=== PATIENT | female | born 1940 | race Two or more races ===

== ENCOUNTER 2023-10-19 16:04 | Inpatient (IN) | payer OTHER ==
[~2023-10-19] VITALS: Ht 157.5 cm; Wt 66.9 kg
[2023-10-19] MEDS: NITROGLYCERIN 0.4 MG SL TAB SL ONE (17:30)
[2023-10-19] MEDS: ASPirin 325 MG TAB PO ONE (17:30)
[2023-10-19 17:35] LABS: Alanine Aminotransferase 19 U/L (7-40); Albumin 4.4 g/dL (3.2-4.8); Alkaline Phosphatase 80 U/L (46-116); Anion Gap 12 (5-15); Aspartate Aminotransferase 27 U/L (13-40); BUN/Creatinine Ratio 12.6 (10.0-20.0); Bilirubin, Total 0.5 mg/dL (0.2-1.0); Blood Urea Nitrogen 18 mg/dL (9-23); Calcium 9.7 mg/dL (8.5-10.1); Carbon Dioxide 20 mmol/L (20-30); Chloride 109 mmol/L (98-107); Glucose 144 mg/dL (74-106); Potassium 4.3 mmol/L (3.5-5.1); Sodium 141 mmol/L (136-145)
[2023-10-19 18:25] LABS: Basophils # (auto) 0 10 ^3/uL (0-0.2); Basophils % (auto) 0.2 % (0.0-2.0); Eosinophils # (auto) 0 10 ^3/uL (0-0.8); Hematocrit 25.4 % (36.0-46.0); Hemoglobin 8.5 g/dL (12.2-16.2); Lymphocytes # (auto) 0.8 10 ^3/uL (0.4-5.4); Lymphocytes % (auto) 13.7 % (10.0-50.0); Mean Corpuscular Hemoglobin 29.1 pg (28.0-32.0); Mean Corpuscular Hgb Conc. 33.6 g/dL (32.0-36.0); Mean Corpuscular Volume 86.9 fL (80.0-100.0); Monocytes # (auto) 0.3 10 ^3/uL (0-1.3); Neutrophils # (auto) 4.7 10 ^3/uL (1.6-8.6); Neutrophils % (auto) 80.1 % (37.0-80.0); Red Blood Cells 2.92 10^6/uL (4.0-5.20); White Blood Cell 5.8 10^3/uL (4.4-10.8)
[2023-10-19 18:34] LABS: Urine Bacteria FEW /hpf (None Seen); Urine Blood TRACE /uL (Negative); Urine Clarity Clear (Clear); Urine Color Light-Yellow (Yellow); Urine Mucus FEW (None Seen); Urine Protein, UAD Negative (Negative); Urine Specific Gravity 1.014 (1.001-1.035); Urine Urobilinogen Normal (Negative); Urine WBC 11 /hpf (0 - 5); Urine pH 5.5 (5.0-9.0)
[2023-10-19] MEDS ORDERED: NITROGLYCERIN 0.4 MG SL TAB SL PRN (20:30)
[2023-10-19] MEDS ORDERED: ONDANSETRON HCL 4 MG/2 ML VIAL IV PRN (20:30)
[2023-10-19] MEDS ORDERED: MORPHINE SULFATE INJ 2 MG/ml SYRG IV PRN (20:30)
[2023-10-20] VITALS (8 sets, daily range): BP systolic 94–142; BP diastolic 50–74; PULSE 70–84; RESP 16–22; TEMP 98–98.7; O2SAT 94–97
[2023-10-20] MEDS ORDERED: QUET200T45 PO (04:19)
[2023-10-20] MEDS ORDERED: OMEP20TA PO (04:19)
[2023-10-20] MEDS ORDERED: TRAZ-227 PO (04:19)
[2023-10-20] MEDS ORDERED: ALPR0.254 PO (04:19)
[2023-10-20] MEDS ORDERED: DILT60TA PO (04:19)
[2023-10-20] MEDS ORDERED: APIX2.5T PO (04:19)
[2023-10-20] MEDS ORDERED: LISI-285 PO (04:19)
[2023-10-20 06:33] LABS: Basophils # (auto) 0 10 ^3/uL (0-0.2); Eosinophils # (auto) 0 10 ^3/uL (0-0.8); Hemoglobin 8.2 g/dL (12.2-16.2); Monocytes # (auto) 0.4 10 ^3/uL (0-1.3)
[2023-10-20 06:35] LABS: Basophils % (auto) 0.3 % (0.0-2.0); Hematocrit 24.5 % (36.0-46.0); Lymphocytes # (auto) 0.8 10 ^3/uL (0.4-5.4); Lymphocytes % (auto) 15.7 % (10.0-50.0); Mean Corpuscular Hemoglobin 29.4 pg (28.0-32.0); Mean Corpuscular Hgb Conc. 33.5 g/dL (32.0-36.0); Mean Corpuscular Volume 87.8 fL (80.0-100.0); Monocytes % (auto) 7.5 % (0.0-12.0); Neutrophils % (auto) 76.5 % (37.0-80.0); Red Cell Distribution Width 15.2 % (11.8-14.3); White Blood Cell 5.2 10^3/uL (4.4-10.8)
[2023-10-20 06:42] LABS: Chloride 108 mmol/L (98-107); Potassium 3.6 mmol/L (3.5-5.1); Sodium 143 mmol/L (136-145)
[2023-10-20 06:43] LABS: Anion Gap 12 (5-15); Calcium 9.6 mg/dL (8.5-10.1); Carbon Dioxide 23 mmol/L (20-30)
[2023-10-20 06:48] LABS: BUN/Creatinine Ratio 20.5 (10.0-20.0); Blood Urea Nitrogen 23 mg/dL (9-23); Glucose 166 mg/dL (74-106)
[2023-10-20] MEDS ORDERED: ENOXAPARIN SOD 30 MG/0.3 ML SYRINGE SC SCH (10:00)
[2023-10-20] MEDS ORDERED: ASPirin 81 mg TAB PO SCH (10:00)
[2023-10-20] MEDS: cefTRIAXone 1GM/50ML D5W 50 ML IV SCH (10:50)
[2023-10-20] MEDS: APIXABAN 2.5 MG TAB PO SCH (10:50)
[2023-10-20] MEDS: traZODone HCL 50 MG TAB PO SCH (17:28)
[2023-10-20] MEDS: ACETAMINOPHEN 325 MG TAB PO PRN (17:35)
[2023-10-20] MEDS: QUEtiapine FUMARATE 100 MG TAB PO SCH (21:48)
[2023-10-20] MEDS: PANTOPRAZOLE 40 MG TAB PO SCH (21:48)
[2023-10-21] VITALS (7 sets, daily range): BP systolic 94–127; BP diastolic 44–76; PULSE 76–98; RESP 18–19; TEMP 97.7–98.7; O2SAT 94–99
[2023-10-21] MEDS: ALPRAZolam 0.25 MG TAB PO PRN (03:37)
[2023-10-21] MEDS ORDERED: dilTIAZem HCL 60 MG TAB PO SCH (10:00)
[2023-10-22] MEDS: HYDROcodone-ACET 5/325MG TAB PO PRN (05:08)
[2023-10-22 08:00] VITALS: BP 90/58; PULSE 112; PULSE 99; RESP 16; TEMP 98; O2SAT 91
[2023-10-22] MEDS: DOCUSATE SOD 100 MG CAP PO PRN (08:08)
[2023-10-22 09:20] VITALS: BP 90/58; PULSE 99; RESP 16; TEMP 98; O2SAT 91
[2023-10-22 12:24] VITALS: BP 108/63; PULSE 93; RESP 20; TEMP 98.2; O2SAT 93
[2023-10-22 16:49] VITALS: BP 104/58; PULSE 78; RESP 19; TEMP 98.2; O2SAT 93
[2023-10-22 20:00] VITALS: BP 114/78; PULSE 91; PULSE 95; RESP 20; TEMP 99.1; O2SAT 93
[2023-10-22 21:00] VITALS: BP 118/62; PULSE 86; RESP 19; TEMP 98.1; O2SAT 93
[2023-10-23 01:02] VITALS: BP 120/63; PULSE 79; RESP 17; TEMP 97.8; O2SAT 94
[2023-10-23 05:00] VITALS: BP 115/55; PULSE 94; RESP 18; TEMP 98.2; O2SAT 92
[2023-10-23 05:50] LABS: Basophils # (auto) 0 10 ^3/uL (0-0.2); Basophils % (auto) 0.2 % (0.0-2.0); Eosinophils # (auto) 0 10 ^3/uL (0-0.8); Hemoglobin 8.3 g/dL (12.2-16.2); Lymphocytes % (auto) 17.5 % (10.0-50.0); Mean Corpuscular Hemoglobin 28.7 pg (28.0-32.0); Mean Corpuscular Hgb Conc. 33.3 g/dL (32.0-36.0); Mean Corpuscular Volume 86.3 fL (80.0-100.0); Monocytes # (auto) 0.5 10 ^3/uL (0-1.3); Monocytes % (auto) 8.2 % (0.0-12.0); Neutrophils # (auto) 4.4 10 ^3/uL (1.6-8.6); Neutrophils % (auto) 74.1 % (37.0-80.0); Nucleated Red Blood Cells % 0.1 %; White Blood Cell 5.9 10^3/uL (4.4-10.8)
[2023-10-23 06:10] LABS: Alanine Aminotransferase 20 U/L (7-40); Albumin 4.2 g/dL (3.2-4.8); Alkaline Phosphatase 78 U/L (46-116); Anion Gap 13 (5-15); Aspartate Aminotransferase 19 U/L (13-40); BUN/Creatinine Ratio 22.3 (10.0-20.0); Bilirubin, Total 0.7 mg/dL (0.2-1.0); Blood Urea Nitrogen 25 mg/dL (9-23); Carbon Dioxide 21 mmol/L (20-30); Chloride 106 mmol/L (98-107); Glucose 133 mg/dL (74-106); Potassium 3.8 mmol/L (3.5-5.1); Sodium 140 mmol/L (136-145)
[2023-10-23 06:30] LABS: Magnesium 1.6 mg/dL (1.6-2.6)
[2023-10-23 08:00] VITALS: PULSE 88; PULSE 99; RESP 20; O2SAT 96
[2023-10-23 08:46] VITALS: BP 118/70; PULSE 109; RESP 19; TEMP 98.6; O2SAT 93
[2023-10-23] MEDS: ADENOSINE 56 MG in GIVE UN-DILUTED 0 ML IV STA (10:27)
[2023-10-23 12:53] VITALS: BP 113/44; PULSE 93; RESP 19; TEMP 98.7; O2SAT 98
[2023-10-23 17:14] VITALS: BP 123/75; PULSE 80; RESP 19; TEMP 98.4; O2SAT 95
[2023-10-23] MEDS ORDERED: CEFD300C2 PO (17:34)
== END 2023-10-23 18:36 | disposition home health service (06) | DRG 392 ==
LOC: ER 16:04 → TELE 20:40 → TELE-WESTW 10-20 02:12
PROVIDERS: ADMIT Nurse Practitioner Family; ATTEND Nurse Practitioner Family
DX: K21.9 Gastro-esophageal reflux disease without esophagitis (principal); N39.0 Urinary tract infection, site not specified; E78.5 Hyperlipidemia, unspecified; D64.9 Anemia, unspecified; I10 Essential (primary) hypertension; I49.9 Cardiac arrhythmia, unspecified; G20.A1 Parkinson's disease without dyskinesia, without mention of fluctuations; Z86.73 Personal history of transient ischemic attack (TIA), and cerebral infarction without residual deficits; Z90.49 Acquired absence of other specified parts of digestive tract; Z79.01 Long term (current) use of anticoagulants
CPT/HCPCS: 36415; 71045; 78452; 80048; 80053; 81001; 83605; 83735; 83880; 84484; 85025; 87040; 93005; 93017; 93306; 97110; 97116; 97163; 97530; G0378; J0153

== ENCOUNTER 2024-02-24 11:05 | Inpatient (IN) | payer OTHER ==
[~2024-02-24] VITALS: Ht 152.4 cm; Wt 60.0 kg
[~2024-02-24 11:05] MED LIST: ALPR0.254 PO; APIX2.5T PO; CEFD300C2 PO; DILT60TA PO; OMEP20TA PO; QUET200T45 PO; TRAZ-227 PO
[2024-02-24 11:38] VITALS: PULSE 90; RESP 50; O2SAT 95
[2024-02-24 12:44] LABS: Basophils # (auto) 0 10 ^3/uL (0-0.2); Basophils % (auto) 0.2 % (0.0-2.0); Eosinophils # (auto) 0 10 ^3/uL (0-0.8); Hemoglobin 8.7 g/dL (12.2-16.2); Lymphocytes # (auto) 0.5 10 ^3/uL (0.4-5.4); Mean Corpuscular Hemoglobin 31.7 pg (28.0-32.0); Mean Corpuscular Hgb Conc. 33.2 g/dL (32.0-36.0); Mean Corpuscular Volume 95.5 fL (80.0-100.0); Monocytes # (auto) 0.6 10 ^3/uL (0-1.3); Monocytes % (auto) 7.6 % (0.0-12.0); Neutrophils # (auto) 6.6 10 ^3/uL (1.6-8.6); Neutrophils % (auto) 85.2 % (37.0-80.0); Nucleated Red Blood Cells % 0.1 %; Platelet Count (auto) 177 10^3/uL (140-450); Red Blood Cells 2.73 10^6/uL (4.0-5.20); Red Cell Distribution Width 21.6 % (11.8-14.3); White Blood Cell 7.8 10^3/uL (4.4-10.8)
[2024-02-24 12:55] LABS: Alanine Aminotransferase 21 U/L (7-40); Alkaline Phosphatase 185 U/L (46-116); Anion Gap 8 (5-15); BUN/Creatinine Ratio 18.5 (10.0-20.0); Blood Urea Nitrogen 20 mg/dL (9-23); Calcium 9.8 mg/dL (8.7-10.4); Carbon Dioxide 25 mmol/L (20-30); Chloride 108 mmol/L (98-107); Glucose 132 mg/dL (74-106); Potassium 4.1 mmol/L (3.5-5.1); Sodium 141 mmol/L (136-145)
[2024-02-24 12:56] LABS: Albumin 3.4 g/dL (3.2-4.8); Aspartate Aminotransferase 51 U/L (13-40); Total Protein 6.8 g/dL (5.7-8.2)
[2024-02-24 15:16] LABS: Urine Bacteria FEW /hpf (None Seen); Urine Blood Negative /uL (Negative); Urine Color Yellow (Yellow); Urine Protein, UAD 1+ (Negative); Urine Specific Gravity 1.022 (1.001-1.035); Urine Urobilinogen 8 mg/dL (Negative); Urine WBC 3 /hpf (0 - 5)
[2024-02-24 15:17] LABS: Urine Clarity Clear (Clear)
[2024-02-24] MEDS: IOHEXOL 300 MG/ML 100ML BOTTLE IJ ONE (15:30)
[2024-02-24] MEDS ORDERED: ALPRAZolam 0.25 MG TAB PO PRN (16:30)
[2024-02-24] MEDS ORDERED: NITROGLYCERIN 0.4 MG SL TAB SL PRN (16:30)
[2024-02-24] MEDS ORDERED: MORPHINE SULFATE INJ 2 MG/ml SYRG IV PRN (16:30)
[2024-02-24] MEDS: MORPHINE SULFATE INJ 2 MG/ml SYRG IV PRN ×2 (16:51→21:42)
[2024-02-24] MEDS: ONDANSETRON HCL 4 MG/2 ML VIAL ONE (16:52)
[2024-02-24] MEDS: MORPHINE SULFATE INJ 2 MG/ml SYRG ONE (16:52)
[2024-02-24] MEDS: ONDANSETRON HCL 4 MG/2 ML VIAL IV PRN (16:52)
[2024-02-24 17:28] LABS: INR 1.13 (0.9-1.15); Partial Thromboplastin Time 26.5 SEC (24.5-34.5); Prothrombin Time 11.9 sec (9.3-11.8)
[2024-02-24 19:00] VITALS: PULSE 70; RESP 19; O2SAT 96
[2024-02-24] MEDS: QUEtiapine FUMARATE 25 MG TAB PO SCH (21:42)
[2024-02-25 07:30] VITALS: PULSE 92; RESP 27; O2SAT 92
[2024-02-25] MEDS: dilTIAZem HCL 60 MG TAB PO SCH (10:00)
[2024-02-25] MEDS: PANTOPRAZOLE 40 MG/10 ML VIAL INJ IV SCH (10:07)
[2024-02-25] MEDS ORDERED: LACTULOSE 10g/15ml SOLN 473ML PR ONE ×2 (13:45→15:15)
[2024-02-25] MEDS ORDERED: DEXTROSE (50%) 50ML SYRG IV PRN (13:45)
[2024-02-25] MEDS: D5W/SOD CHL 0.45% 1,000 ML IV SCH (14:16)
[2024-02-25] MEDS: levoFLOXacin 500MG 100 ML IV ONE (14:29)
[2024-02-25] MEDS: LACTULOSE 10g/15ml SOLN 473ML PR SCH (16:08)
[2024-02-25] MEDS ORDERED: LACTULOSE 10g/15ml SOLN 473ML PR SCH ×2 (18:00→22:00)
[2024-02-25] MEDS: InsuLIN REG 1unit/0.01ml Soln (100units/ml) SC SCH (18:00)
[2024-02-25] MEDS: ACCU-CHEK COMFORT CURVE STRIP VI SCH (18:04)
[2024-02-25 19:35] VITALS: PULSE 89; RESP 24; O2SAT 95
[2024-02-26] VITALS (23 sets, daily range): BP systolic 98–159; BP diastolic 37–75; PULSE 83–104; RESP 13–26; TEMP 96.9–98.4; O2SAT 95–100
[2024-02-26 09:02] LABS: Basophils # (auto) 0 10 ^3/uL (0-0.2); Basophils % (auto) 0.2 % (0.0-2.0); Eosinophils # (auto) 0 10 ^3/uL (0-0.8); Lymphocytes # (auto) 0.4 10 ^3/uL (0.4-5.4); Monocytes # (auto) 0.6 10 ^3/uL (0-1.3); Neutrophils # (auto) 8.8 10 ^3/uL (1.6-8.6); White Blood Cell 9.8 10^3/uL (4.4-10.8)
[2024-02-26 09:03] LABS: Hematocrit 25.1 % (36.0-46.0); Hemoglobin 8.5 g/dL (12.2-16.2); Lymphocytes % (auto) 3.8 % (10.0-50.0); Mean Corpuscular Hemoglobin 32.5 pg (28.0-32.0); Mean Corpuscular Hgb Conc. 33.9 g/dL (32.0-36.0); Mean Corpuscular Volume 95.9 fL (80.0-100.0); Monocytes % (auto) 5.8 % (0.0-12.0); Neutrophils % (auto) 90.2 % (37.0-80.0); Platelet Count (auto) 188 10^3/uL (140-450); Red Blood Cells 2.62 10^6/uL (4.0-5.20); Red Cell Distribution Width 21.1 % (11.8-14.3)
[2024-02-26 09:16] LABS: Alanine Aminotransferase 23 U/L (7-40); Albumin 3.3 g/dL (3.2-4.8); Alkaline Phosphatase 170 U/L (46-116); Anion Gap 9 (5-15); Aspartate Aminotransferase 65 U/L (13-40); BUN/Creatinine Ratio 18.8 (10.0-20.0); Blood Urea Nitrogen 18 mg/dL (9-23); Calcium 9.8 mg/dL (8.7-10.4); Carbon Dioxide 24 mmol/L (20-30); Chloride 111 mmol/L (98-107); Glucose 151 mg/dL (74-106); Magnesium 1.9 mg/dL (1.6-2.6); Potassium 3.4 mmol/L (3.5-5.1); Sodium 144 mmol/L (136-145)
[2024-02-26 09:18] LABS: Bilirubin, Total 4.2 mg/dL (0.2-1.0); Total Protein 6.5 g/dL (5.7-8.2)
[2024-02-26] MEDS ORDERED: levoFLOXacin 500MG 100 ML IV SCH (10:00)
[2024-02-26] MEDS: KETOROLAC TROMETH 30 MG/ML 1ML VIAL IV PRN (11:12)
[2024-02-26] MEDS: POTASSIUM CHL 20MEQ/100ML 100 ML IV ONE (11:12)
[2024-02-26 11:29] LABS: INR 1.1 (0.9-1.15); Partial Thromboplastin Time 27.8 SEC (24.5-34.5); Prothrombin Time 11.6 sec (9.3-11.8)
[2024-02-26] MEDS: levoFLOXacin 250MG 50 ML IV SCH (11:32)
[2024-02-26] MEDS: LACTULOSE 10g/15ml SOLN 473ML PR ONE (14:05)
[2024-02-26] MEDS ORDERED: KETOROLAC TROMETH 30 MG/ML 1ML VIAL IV PRN (15:00)
[2024-02-26] MEDS: KETOROLAC TROMETH 30 MG/ML 1ML VIAL IV ONE (16:00)
[2024-02-26] MEDS: ALBUMIN 25% 100 ML IV ONE (16:38)
[2024-02-26 19:47] LABS: Body Fluid Polymorphonuclear 20 % (0-25); Body Fluid Red Blood Cells 738 CUMM (0-2000); Body Fluid White Blood Cells 278 CUMM (0-200)
[2024-02-27] VITALS (29 sets, daily range): BP systolic 107–153; BP diastolic 47–87; PULSE 78–93; RESP 13–26; TEMP 97.8–98.7; O2SAT 96–100
[2024-02-27] MEDS: KETOROLAC TROMETH 30 MG/ML 1ML VIAL IV PRN
[2024-02-27] MEDS ORDERED: LISI-285 PO (09:48)
[2024-02-27] MEDS: dilTIAZem 120MG ER CAP PO SCH (10:00)
[2024-02-27] MEDS: LORazepam 2MG/ML-1ML VIAL IV ONE (15:45)
[2024-02-27] MEDS: GADOTERATE MEG 10 MMOL/20ml INJ (0.5MMOL/ml) IV ONE (15:46)
[2024-02-27] MEDS: LORazepam 2MG/ML-1ML VIAL ONE (15:47)
[2024-02-27] MEDS: ENOXAPARIN SOD 40 MG/0.4 ML SYRINGE SC ONE (17:00)
[2024-02-27] MEDS: ASPirin 300 MG RECTAL SUPP PR ONE (17:00)
[2024-02-27 17:41] LABS: Basophils # (auto) 0 10 ^3/uL (0-0.2); Basophils % (auto) 0.2 % (0.0-2.0); Eosinophils # (auto) 0 10 ^3/uL (0-0.8); Hematocrit 22.1 % (36.0-46.0); Lymphocytes # (auto) 0.5 10 ^3/uL (0.4-5.4); Lymphocytes % (auto) 6.3 % (10.0-50.0); Monocytes # (auto) 0.6 10 ^3/uL (0-1.3); Nucleated Red Blood Cells % 0.1 %
[2024-02-27 17:42] LABS: Hemoglobin 7.7 g/dL (12.2-16.2); Mean Corpuscular Hemoglobin 33.1 pg (28.0-32.0); Mean Corpuscular Hgb Conc. 34.6 g/dL (32.0-36.0); Mean Corpuscular Volume 95.6 fL (80.0-100.0); Monocytes % (auto) 6.6 % (0.0-12.0); Neutrophils # (auto) 7.6 10 ^3/uL (1.6-8.6); Neutrophils % (auto) 86.9 % (37.0-80.0); Platelet Count (auto) 153 10^3/uL (140-450); Red Blood Cells 2.32 10^6/uL (4.0-5.20); White Blood Cell 8.7 10^3/uL (4.4-10.8)
[2024-02-27 17:54] LABS: Alanine Aminotransferase 18 U/L (7-40); Albumin 3.2 g/dL (3.2-4.8); Alkaline Phosphatase 150 U/L (46-116); Anion Gap 8 (5-15); Aspartate Aminotransferase 52 U/L (13-40); BUN/Creatinine Ratio 20.5 (10.0-20.0); Blood Urea Nitrogen 17 mg/dL (9-23); Calcium 10.1 mg/dL (8.7-10.4); Carbon Dioxide 24 mmol/L (20-30); Chloride 113 mmol/L (98-107); Glucose 106 mg/dL (74-106); Potassium 3.5 mmol/L (3.5-5.1); Sodium 145 mmol/L (136-145); Total Protein 6.2 g/dL (5.7-8.2)
[2024-02-27 18:03] LABS: INR 1.15 (0.9-1.15); Partial Thromboplastin Time 28.8 SEC (24.5-34.5); Prothrombin Time 12.1 sec (9.3-11.8)
[2024-02-27 18:13] LABS: Red Cell Distribution Width 21.3 % (11.8-14.3)
[2024-02-27] MEDS ORDERED: ASPirin 300 MG RECTAL SUPP PR ONE (19:45)
[2024-02-27] MEDS ORDERED: ENOXAPARIN SOD 40 MG/0.4 ML SYRINGE SC ONE (19:45)
[2024-02-27] MEDS: ASPirin 300 MG RECTAL SUPP PR SCH (20:04)
[2024-02-27] MEDS: ENOXAPARIN SOD 40 MG/0.4 ML SYRINGE SC SCH (20:04)
[2024-02-27] MEDS: QUEtiapine FUMARATE 25 MG TAB PO SCH (21:31)
[2024-02-28] VITALS (49 sets, daily range): BP systolic 113–164; BP diastolic 53–87; PULSE 73–96; RESP 12–34; TEMP 97.8–98.7; O2SAT 93–100
[2024-02-28 05:01] LABS: Basophils # (auto) 0 10 ^3/uL (0-0.2); Basophils % (auto) 0.6 % (0.0-2.0); Eosinophils # (auto) 0 10 ^3/uL (0-0.8); Hematocrit 22.8 % (36.0-46.0); Hemoglobin 7.7 g/dL (12.2-16.2); Lymphocytes # (auto) 0.6 10 ^3/uL (0.4-5.4); Lymphocytes % (auto) 7.5 % (10.0-50.0); Mean Corpuscular Hemoglobin 32.8 pg (28.0-32.0); Mean Corpuscular Hgb Conc. 33.6 g/dL (32.0-36.0); Mean Corpuscular Volume 97.5 fL (80.0-100.0); Monocytes # (auto) 0.6 10 ^3/uL (0-1.3); Monocytes % (auto) 7.1 % (0.0-12.0); Neutrophils # (auto) 6.9 10 ^3/uL (1.6-8.6); Neutrophils % (auto) 84.8 % (37.0-80.0); Nucleated Red Blood Cells % 0.1 %; Platelet Count (auto) 128 10^3/uL (140-450); Red Blood Cells 2.34 10^6/uL (4.0-5.20); Red Cell Distribution Width 20.5 % (11.8-14.3); White Blood Cell 8.1 10^3/uL (4.4-10.8)
[2024-02-28 05:15] LABS: Alanine Aminotransferase 16 U/L (7-40); Alkaline Phosphatase 151 U/L (46-116); Anion Gap 7 (5-15); Aspartate Aminotransferase 49 U/L (13-40); BUN/Creatinine Ratio 18.4 (10.0-20.0); Bilirubin, Total 4.2 mg/dL (0.2-1.0); Blood Urea Nitrogen 14 mg/dL (9-23); Calcium 9.8 mg/dL (8.7-10.4); Carbon Dioxide 22 mmol/L (20-30); Chloride 114 mmol/L (98-107); Glucose 123 mg/dL (74-106); Potassium 3.2 mmol/L (3.5-5.1); Sodium 143 mmol/L (136-145)
[2024-02-28 05:23] LABS: INR 1.16 (0.9-1.15); Prothrombin Time 12.2 sec (9.3-11.8)
[2024-02-28 05:26] LABS: Partial Thromboplastin Time 28.8 SEC (24.5-34.5)
[2024-02-28] MEDS: POTASSIUM CHLORIDE 40 MEQ, LIDOCAINE 1% (LOCAL ANESTH.) 4 ML in SODIUM CHL 0.9% 250 ML IV ONE (10:00)
[2024-02-28] MEDS: ENOXAPARIN SOD 40 MG/0.4 ML SYRINGE SC SCH (10:01)
[2024-02-28] MEDS: IOHEXOL 350 MG/ML 100ML IJ ONE (10:04)
[2024-02-28 13:07] LABS: Protein, Body Fluid 3.4 g/dL (.)
[2024-02-29] VITALS (18 sets, daily range): BP systolic 119–151; BP diastolic 55–76; PULSE 71–98; RESP 12–29; TEMP 97.6–98.1; O2SAT 93–100
[2024-02-29 05:52] LABS: Basophils # (auto) 0 10 ^3/uL (0-0.2); Eosinophils # (auto) 0 10 ^3/uL (0-0.8); Hemoglobin 7.8 g/dL (12.2-16.2); Lymphocytes # (auto) 0.7 10 ^3/uL (0.4-5.4); Monocytes # (auto) 0.6 10 ^3/uL (0-1.3); Monocytes % (auto) 8.7 % (0.0-12.0); Neutrophils # (auto) 5.9 10 ^3/uL (1.6-8.6); Nucleated Red Blood Cells % 0.1 %
[2024-02-29 05:55] LABS: Basophils % (auto) 0.3 % (0.0-2.0); Hematocrit 22.3 % (36.0-46.0); Lymphocytes % (auto) 9.3 % (10.0-50.0); Mean Corpuscular Hemoglobin 33.2 pg (28.0-32.0); Mean Corpuscular Volume 94.7 fL (80.0-100.0); Neutrophils % (auto) 81.7 % (37.0-80.0); Platelet Count (auto) 152 10^3/uL (140-450); Red Blood Cells 2.35 10^6/uL (4.0-5.20); White Blood Cell 7.2 10^3/uL (4.4-10.8)
[2024-02-29 06:10] LABS: Alanine Aminotransferase 17 U/L (7-40); Alkaline Phosphatase 157 U/L (46-116); Anion Gap 13 (5-15); BUN/Creatinine Ratio 21.7 (10.0-20.0); Blood Urea Nitrogen 20 mg/dL (9-23); Calcium 9.5 mg/dL (8.7-10.4); Carbon Dioxide 22 mmol/L (20-30); Chloride 110 mmol/L (98-107); Glucose 123 mg/dL (74-106); Potassium 3.6 mmol/L (3.5-5.1); Sodium 145 mmol/L (136-145)
[2024-02-29 06:11] LABS: Aspartate Aminotransferase 48 U/L (13-40); Bilirubin, Total 3.2 mg/dL (0.2-1.0); Total Protein 5.9 g/dL (5.7-8.2)
[2024-02-29] MEDS: ASPirin-EC 81 mg tab PO SCH (10:50)
[2024-02-29] MEDS: CLOPIDOGREL BISULFATE 75 MG TAB PO SCH (10:50)
[2024-02-29] MEDS: LACTULOSE 20Gm/30ML SOLN PO SCH (10:50)
[2024-03-01 01:00] VITALS: BP 111/62; PULSE 94; RESP 20; TEMP 98; O2SAT 92
[2024-03-01 05:00] VITALS: BP 120/68; PULSE 91; RESP 20; TEMP 98; O2SAT 93
[2024-03-01] MEDS: PANTOPRAZOLE 40 MG TAB PO SCH (06:06)
[2024-03-01 08:00] VITALS: PULSE 88
[2024-03-01 09:13] VITALS: BP 133/60; PULSE 88; RESP 19; TEMP 98.6; O2SAT 96
[2024-03-01] MEDS ORDERED: QUET1TAB11 PO (11:54)
[2024-03-01] MEDS ORDERED: LACT10SO3 PO (11:56)
[2024-03-01 14:22] VITALS: BP 136/69; PULSE 81; RESP 18; TEMP 98.5; O2SAT 94
== END 2024-03-01 15:00 | disposition hospice, inpatient (51) | DRG 435 ==
LOC: ER 11:05 → EDUNIT# 11:05 → EDBD 11:05 → TELE 16:23 → DOU IN ICU 02-26 03:23 → TELE-WESTW 02-29 16:45
PROVIDERS: ADMIT Hospitalist; ATTEND Internal Medicine
PROC: 0W9G3ZZ Drainage of Peritoneal Cavity, Percutaneous Approach (ICD-10-PCS; principal; 2024-02-26)
PROC: 05H933Z Insertion of Infusion Device into Right Brachial Vein, Percutaneous Approach (ICD-10-PCS; 2024-02-26)
PROC: B54MZZA Ultrasonography of Right Upper Extremity Veins, Guidance (ICD-10-PCS; 2024-02-26)
PROC: 0W9G3ZX Drainage of Peritoneal Cavity, Percutaneous Approach, Diagnostic (ICD-10-PCS; 2024-02-26)
DX: C25.9 Malignant neoplasm of pancreas, unspecified (principal); I63.9 Cerebral infarction, unspecified; R18.8 Other ascites; C78.6 Secondary malignant neoplasm of retroperitoneum and peritoneum; G40.209 Localization-related (focal) (partial) symptomatic epilepsy and epileptic syndromes with complex partial seizures, not intractable, without status epilepticus; C78.7 Secondary malignant neoplasm of liver and intrahepatic bile duct; C79.31 Secondary malignant neoplasm of brain; Z66 Do not resuscitate; D63.8 Anemia in other chronic diseases classified elsewhere; K76.82 Hepatic encephalopathy; R06.03 Acute respiratory distress; R16.0 Hepatomegaly, not elsewhere classified; I10 Essential (primary) hypertension; Z86.73 Personal history of transient ischemic attack (TIA), and cerebral infarction without residual deficits; Z79.01 Long term (current) use of anticoagulants; Z90.49 Acquired absence of other specified parts of digestive tract; Z98.891 History of uterine scar from previous surgery; Z82.3 Family history of stroke; Z51.5 Encounter for palliative care; Z82.49 Family history of ischemic heart disease and other diseases of the circulatory system
CPT/HCPCS: 36415; 49083; 70450; 70496; 70553; 71045; 71260; 74177; 76705; 76942; 80053; 81001; 82140; 82378; 82962; 83605; 83735; 83880; 83986; 84484; 85025; 85610; 85730; 86301; 86304; 87040; 87081; 87205; 89051; 92610; 93005; 93886; 95819; 97110; 97163; 99291; G0378; J1815; J1885; J1956; J2001; J2405; J2470; J3480; P9047